=== PATIENT | female | born 1965 | race Caucasian/White ===

== ENCOUNTER 2025-08-20 06:27 | Day surgery (SDC) | payer OTHER ==
[~2025-08-20] VITALS: Ht 160 cm; Wt 76.4 kg
[~2025-08-20 06:27] MED LIST: FLUT16SP NASAL; INHALER PO; METF-910 PO; MONT-35 PO; OMEP20CA12 PO; [UNRECOGNIZED DRUG - OTHER] PO
[2025-08-20] MEDS ORDERED: SODIUM CHLORIDE 0.9% 1,000 ML ONE (06:52)
[2025-08-20] MEDS: SODIUM CHLORIDE 0.9% 1,000 ML IV ONE (07:18)
[2025-08-20] MEDS ORDERED: MIDAZOLAM HCL 2 MG/2 ML VIAL ONE (08:24)
[2025-08-20] MEDS ORDERED: FentaNYL CITRATE PF 100 MCG/2 ML VIAL ONE (08:24)
[2025-08-20 09:20] VITALS: PULSE 80; RESP 18; O2SAT 100
[2025-08-20] MEDS ORDERED: LIDOCAINE 4% 50 ML SOLUTION ONE (12:00)
[2025-08-20] MEDS ORDERED: BENZOCAINE 20% 50 MCG/SPRAY 57 GM ONE (12:00)
[2025-08-20] MEDS ORDERED: ALBUTEROL SULFATE 2.5 MG/0.5 ML NEB SOLUTION NEB ONE (12:00)
[2025-08-20] MEDS ORDERED: LIDOCAINE 2% 11 ML JELLY ONE (12:00)
== END 2025-08-20 14:10 | disposition home or self-care (01) ==
LOC: SURGERY 06:27
PROVIDERS: ATTEND Internal Medicine Critical Care Medicine
DX: J38.4 Edema of larynx (principal); B37.0 Candidal stomatitis; J47.9 Bronchiectasis, uncomplicated; R05.3 Chronic cough; R06.2 Wheezing
CPT/HCPCS: 31623; 87206; 87101; 87220; 87070; 31624; 71045; 87015; J3010; J2250; J2919; J7030; 88108; J7613; Z7610

== ENCOUNTER 2025-08-31 07:48 | Emergency (ER) | payer OTHER ==
[~2025-08-31] VITALS: Ht 160 cm; Wt 80.9 kg
[2025-08-31 07:51] VITALS: TEMP 99
[2025-08-31 08:12] LABS: COVID AG,FIA SOURCE NASAL SWAB
[2025-08-31 08:34] LABS: INFLUENZA TYPE A NEGATIVE FOR TYPE A (NEGATIVE); INFLUENZA TYPE B NEGATIVE FOR TYPE B (NEGATIVE); SARS-COV2 (COVID) ANTIGEN,FIA Negative (Negative)
[2025-08-31 09:10] LABS: PLATELET COUNT (AUTO) 221 K/uL (150-450); RED BLOOD CELL COUNT(AUTO) 4.39 MIL/uL (4.00-5.20); RED CELL DISTRIBUTION WIDTH 14.2 % (11.5-14.5); WHITE BLOOD COUNT (AUTO) 3.6 K/uL (4.5-11.0)
[2025-08-31 09:16] LABS: CALCIUM, TOTAL 8.6 mg/dL (8.8-10.5); CREATININE 0.64 mg/dL (0.60-1.30); GLOMERULAR FILTR. RATE CALC > 60 mL/min (>60); GLUCOSE,RANDOM 96 mg/dL (70-110); SODIUM SERUM 141 mmol/L (136-145); UREA NITROGEN, BLOOD 10 mg/dL (7-18)
[2025-08-31 09:25] LABS: TROPONIN I-HIGH SENSITIVITY Less Than 4 ng/L (<51)
[2025-08-31] MEDS: KETOROLAC TROMETHAMINE 60 MG/2 ML VIAL IM ONE (10:48)
[2025-08-31 12:36] VITALS: BP 102/59; PULSE 74; RESP 16; O2SAT 96
[2025-08-31] MEDS ORDERED: IBUP-1492 PO (13:37)
[2025-08-31] MEDS ORDERED: METH-659 PO (13:38)
== END 2025-08-31 13:54 | disposition home or self-care (01) ==
LOC: EMS 07:48
DX: S29.012A Strain of muscle and tendon of back wall of thorax, initial encounter (principal); R07.89 Other chest pain; E11.9 Type 2 diabetes mellitus without complications; Z98.890 Other specified postprocedural states; Z20.822 Contact with and (suspected) exposure to COVID-19; Z79.899 Other long term (current) drug therapy; X58.XXXA Exposure to other specified factors, initial encounter; Y93.89 Activity, other specified; Y92.89 Other specified places as the place of occurrence of the external cause; Y99.8 Other external cause status
CPT/HCPCS: 99285; 71045; 87426; 80048; 84484; 85025; 87804; 36415; 93005; 96372; J1885